=== PATIENT | female | born 1990 | race Caucasian/White ===

== ENCOUNTER 2020-07-28 12:22 | Outpatient (CLI) | payer MEDICAID, SELFPAY ==
--- NOTE | 2020-07-28 13:05 | MR_ITS ---
WS: [id number] MRI CERVICAL SPINE NONCONTRAST TECHNIQUE: Sagittal T1, T2 and STIR imaging. Axial T2, gradient, and fiesta imaging. CLINICAL INFORMATION: CERVIALGIA COMPARISON: None. FINDINGS: Straightening of the normal cervical lordosis. Mild disc bulging worse at C4-5. Cord signal is normal . Normal paravertebral soft tissues. C2-C3: Normal. C3-C4: Mild disc osteophytic ridging. Mild bilateral foraminal narrowing. Mild facet arthropathy. Spi nal canal is patent. C4-C5: Mild disc osteophyte complex with a tiny central protrusion. Slight effacement of ventral thec al sac. Mild facet arthropathy. Mild right and no significant left foraminal narrowing. Mild facet ar thropathy. C5-C6: No significant disc bulging. Mild facet arthropathy. Mild bilateral foraminal narrowing. C6-C7: Mild disc osteophytic ridging. Spinal canal is patent. Mild bilateral foraminal narrowing. Mil d facet arthropathy. C7-T1: Mild disc osteophytic ridging. Mild bilateral bony foraminal narrowing. Mild facet arthropathy . Visualized brain stem structures: Normal. Prevertebral soft tissues: Normal. MR/MR cervical spin wo con* [id number] IMPRESSION: 1. Straightening of the normal cervical lordosis. Cord signal is normal. 2. Mild disc osteophyte complex C4-5 with slight effacement of ventral thecal sac and mild bilateral bony foraminal narrowing. 3. Multilevel mild facet arthropathy throughout the cervical spine. 4. Osteophytic ridging at C6-C7 and C7-T1 with mild bilateral C7-T1 foraminal narrowing.
== END 2020-07-28 12:23 | disposition home or self-care (01) ==
LOC: RADSHAW 12:27
PROVIDERS: PCP Nurse Practitioner; Visit Provider Nurse Practitioner
DX: M25.78 Osteophyte, vertebrae (principal); M47.812 Spondylosis without myelopathy or radiculopathy, cervical region
CPT/HCPCS: 72141

== ENCOUNTER → 2023-06-12 13:20 | Outpatient (BNVA) | payer MEDICAID, SELFPAY | PROVIDERS: PCP Nurse Practitioner; Referring Provider Nurse Practitioner; Visit Provider Student in an Organized Health Care Education/Training Program | DX: M75.41 Impingement syndrome of right shoulder | CPT/HCPCS: 73030 ==

== ENCOUNTER → 2024-03-24 16:02 | Outpatient (BNVA) | payer MEDICAID, SELFPAY | PROVIDERS: PCP Nurse Practitioner; Visit Provider Nurse Practitioner Family | DX: G89.29 Other chronic pain (principal) | CPT/HCPCS: 80307 ==